=== PATIENT | female | born 1930 | race Caucasian/White ===

== ENCOUNTER → 2017-02-03 | Outpatient (CLI) | payer OTHER | LOC: BHFA 14:45 | PROVIDERS: ATTEND Internal Medicine Cardiovascular Disease | DX: I11.9 Hypertensive heart disease without heart failure (principal); I43 Cardiomyopathy in diseases classified elsewhere; R42 Dizziness and giddiness ==

== ENCOUNTER 2018-02-11 12:07 | Emergency (ER) | payer OTHER ==
[2018-02-11 12:19] VITALS: BP 170/100
--- NOTE | 2018-02-11 12:58 | EDPHY ---
H & P Time Seen by Provider: 02/11/18 12:19 HPI/ROS: CHIEF COMPLAINT: Pain in the head HISTORY OF PRESENT ILLNESS: Patient states that she had some sharp pain to the top of her head 2 days ago. She has some memory loss and can't remember a lot of the details but she states that she thought after she sneezed or cough that the pain caused some swelling and moved a bit. She states that 2 days ago she did go to the nursing station at [facility] for a negative her Tylenol. Yesterday she says that there was no pain but this morning she had a brief episode of pain as well. She denies pain inside the head. She has no vision changes or dizziness. She has no other complaints. She has rheumatoid arthritis with no recent falls. She denies chest pain or shortness of breath. There has been no fever or upper respiratory infection. There is no rash. REVIEW OF SYSTEMS: Constitutional: No fever, no chills. Eyes: No discharge. ENT: No sore throat. Cardiovascular: No chest pain, no palpitations. Respiratory: No cough, no shortness of breath. Gastrointestinal: No abdominal pain, no vomiting. Genitourinary: No dysuria. Musculoskeletal: No back pain. Skin: No rashes. Neurological: No headache. General Appearance: Alert, no distress. Hypertensive. Eyes: Pupils equal and round no pallor or injection. ENT, Mouth: Mucous membranes moist. Skin of the scalp was normal although there are 2 small areas of excoriation likely from scratches to the area that she was complaining about. No swelling noted. No rash, normal TMs. Respiratory: There are no retractions, lungs are clear to auscultation. Cardiovascular: Regular rate and rhythm. Gastrointestinal: Abdomen is soft and nontender, no masses, bowel sounds normal. Neurological: Awake and alert, at baseline with significant memory loss. Cooperative and conversant. Movement all 4 extremities. Cranial nerves intact. Normal gait with treking poles. Skin: Warm and dry, no rashes. Musculoskeletal: Neck is supple nontender. Extremities are symmetrical, full range of motion, no edema. Psychiatric: Patient is oriented X 3, there is no agitation. Medical/surgical history: Hypothyroid, hypertension, dementia. Social history: Nonsmoker lives at [facility] for nursing facility. Smoking Status: Never smoked Constitutional: Initial Vital Signs Temperature (C) 36.5 C 02/11/18 12:14 Heart Rate 68 02/11/18 12:14 Respiratory Rate 18 02/11/18 12:14 Blood Pressure 170/100 H 02/11/18 12:14 O2 Sat (%) 95 02/11/18 12:14 O2 Delivery Mode Room Air Allergies/Adverse Reactions: Penicillins Allergy (Severe, Verified 02/11/18 12:13) SWELLING, WELTS, ITCHY, FACE Home Medications: Medication Instructions Recorded Synthroid 10/19/13 Amlodipine Besylate 03/21/14 Medical Decision Making Differential Diagnosis: Differential diagnosis includes but is not limited to trauma, folliculitis, shingles, trigeminal neuralgia, migraine headache. After evaluation unclear cause of patient's symptoms as currently asymptomatic. No significant skin changes, evidence of infection, herpetic rash or neurologic changes. Discussed watchful waiting and gave clear indications to return to the emergency department or her primary care physician if symptoms persist. Stable for discharge. Departure - Departure Clinical Impression: Scalp pain Condition: Good Instructions: Paresthesia (ED) Additional Instructions: Follow-up with her primary care physician or return to the emergency department if the pain becomes more frequent, more severe or is associated with other abnormal findings. It would be helpful if you were evaluated at the time you having the pain. Otherwise trying not to scratch the skin in that area. Take her regular pain medications as previously prescribed. Referrals: Logan Bloom MD [Primary Care Provider] - As per Instructions
== END 2018-02-11 13:05 | disposition home or self-care (01) ==
LOC: CED 12:07
DX: L98.9 Disorder of the skin and subcutaneous tissue, unspecified (principal); R41.3 Other amnesia

== ENCOUNTER → 2018-08-24 | Outpatient (CLI) | payer OTHER | LOC: BHFA 14:00 | PROVIDERS: ATTEND Internal Medicine Cardiovascular Disease | DX: I34.0 Nonrheumatic mitral (valve) insufficiency (principal) ==